=== PATIENT | female | born 2000 | race Two or more races ===

== ENCOUNTER 2023-11-13 08:24 | Outpatient (CLI) | payer OTHER | END 2023-11-13 08:28 | disposition home or self-care (01) | LOC: PRENATAL 08:24 → EDBD 08:24 → PRENATAL 08:28 | PROVIDERS: ATTEND Obstetrics & Gynecology Maternal & Fetal Medicine | DX: O36.80X0 Pregnancy with inconclusive fetal viability, not applicable or unspecified (principal); Z36.82 Encounter for antenatal screening for nuchal translucency; Z36.9 Encounter for antenatal screening, unspecified; Z3A.12 12 weeks gestation of pregnancy ==

== ENCOUNTER 2023-12-23 06:38 | Emergency (ER) | payer OTHER ==
[~2023-12-23] VITALS: Ht 167.6 cm; Wt 61.2 kg
[2023-12-23 09:19] LABS: PH,URINE 5.5 (5.0-8.0); URINE APPEARANCE Cloudy; URINE BILIRRUBIN Negative (NEGATIVE); URINE BLOOD Negative; URINE COLOR Yellow; URINE GLUCOSE Negative (NEGATIVE); URINE LEUKOCYTE Small; URINE NITRATE Positive; URINE PROTEIN Negative (NEGATIVE)
[2023-12-23 09:20] LABS: HEMATOCRIT 37.5 % (36.0-45.00); HEMOGLOBIN 12.8 g/dL (12.0-15.00); MEAN CELL VOLUME 90.2 fL (80.00-100.00); MEAN CORPUSCULAR HEMOGLOBIN 30.8 pg (27.00-32.0); MEAN CORPUSCULAR HGB CONC 34.2 g/dl (32.0-36.0); PLATELET COUNT 240 K/uL (150-450); RED BLOOD COUNT 4.16 M/uL (4.00-6.00); RED CELL DISTRIBUTION WIDTH 13.2 % (11.5-14.5)
[2023-12-23 09:26] LABS: URINE EPITHELIAL CELLS 17.1 uL (0.0-38.8); URINE RBC 10.4 uL (0.0-20.8)
[2023-12-23 09:58] LABS: CALCIUM 8.7 mg/dL (8.5-10.1); CREATININE SERUM 0.52 mg/dL (0.55-1.02); GFR 144.87; POTASSIUM 3.23 mEq/L (3.5-5.1)
[2023-12-23 10:01] LABS: URINE BACTERIA > 9821.5 uL (0.0-1933)
== END 2023-12-23 10:48 | disposition home or self-care (01) ==
LOC: ER 06:38
PROVIDERS: General Practice
DX: N39.0 Urinary tract infection, site not specified (principal); Z3A.17 17 weeks gestation of pregnancy; Z88.0 Allergy status to penicillin

== ENCOUNTER 2024-01-08 14:48 | Outpatient (CLI) | payer OTHER | END 2024-01-08 15:09 | disposition home or self-care (01) | LOC: PRENATAL 14:48 | PROVIDERS: ATTEND Obstetrics & Gynecology Maternal & Fetal Medicine | DX: O35.9XX0 Maternal care for (suspected) fetal abnormality and damage, unspecified, not applicable or unspecified (principal); O35.3XX0 Maternal care for (suspected) damage to fetus from viral disease in mother, not applicable or unspecified; O44.00 Complete placenta previa NOS or without hemorrhage, unspecified trimester; Z3A.20 20 weeks gestation of pregnancy ==

== ENCOUNTER → 2024-03-03 11:11 | Outpatient (CLI) | payer OTHER | END | disposition home or self-care (01) | LOC: PRENATAL 11:11 | PROVIDERS: ATTEND Obstetrics & Gynecology Maternal & Fetal Medicine | DX: O26.849 Uterine size-date discrepancy, unspecified trimester (principal); O43.90 Unspecified placental disorder, unspecified trimester; Z3A.27 27 weeks gestation of pregnancy ==